=== PATIENT | female | born 1980 | race Asian ===

== ENCOUNTER 2019-09-09 00:06 | Emergency (ER) | payer SELFPAY ==
--- NOTE | 2019-09-09 00:36 | ED ---
Laceration/Wound HPI - HPI Summary HPI Summary: 39-year-old female presents with right middle finger skin avulsion. She states that she cut it at 12 today. She states that she is cutting her finger on a mandolin. She states that she put a pressure dressing on the area but it continued to bleed. States that ended up removing the dressing and it bleed again. Currently oozing. has full ROM. 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 - History of Current Complaint Stated Complaint: FINGER LAC PER PT Time Seen by Provider: 09/09/19 00:16 Pain Intensity: 5 - Allergy/Home Medications Allergies/Adverse Reactions: Allergies Allergy/AdvReac Type Severity Reaction Status Date / Time oyster extract Allergy Vomiting Verified 09/09/19 00:10 PMH/Surg Hx/FS Hx/Imm Hx Endocrine/Hematology History: Denies: Hx Anticoagulant Therapy Respiratory History: Denies: Hx Asthma Infectious Disease History: No Infectious Disease History: Denies: Traveled Outside the [place] in Last 30 Days - Family History Known Family History: Positive: Non-Contributory - Social History Alcohol Use: Occasionally Substance Use Type: Reports: None Review of Systems Negative: Fever Negative: Chest Pain Negative: Shortness Of Breath Positive: Other - skin avulsion right middle finger All Other Systems Reviewed And Are Negative: Yes Physical Exam Triage Information Reviewed: Yes Vital Signs On Initial Exam: Initial Vitals Temp Pulse Resp BP Pulse Ox 98.1 F 60 15 146/106 100 09/09/19 00:08 09/09/19 00:08 09/09/19 00:08 09/09/19 00:08 09/09/19 00:08 Vital Signs Reviewed: Yes Appearance: Positive: Well-Appearing Skin: Positive: Other - 1 1/2cm by 1/2cm skin avulsion of right middle finger Head/Face: Positive: Normal Head/Face Inspection Eyes: Positive: Normal, Conjunctiva Clear ENT: Positive: Pharynx normal Respiratory/Lung Sounds: Positive: Clear to Auscultation, Breath Sounds Present Cardiovascular: Positive: Normal, RRR Musculoskeletal: Positive: Strength/ROM Intact - right hand, Other - good pulses Neurological: Positive: Normal Psychiatric: Positive: Normal Procedures - Sedation Patient Received Moderate/Deep Sedation with Procedure: No - Laceration/Wound Repair 1 Location: Other - right middle finger Length, Depth and Shape: 1 1/2cm by 1/2cm skin avulsion Irrigated w/ Saline (ccs): 500 Sterile Dressing Applied?: Yes - surgicel, xerform, telfa and coband Diagnostics - Vital Signs Vital Signs Temp Pulse Resp BP Pulse Ox 09/09/19 00:08 98.1 F 60 15 146/106 100 - Laboratory Lab Statement: Any lab studies that have been ordered have been reviewed, and results considered in the medical decision making process. Laceration Repair Course/Dx - Course Course Of Treatment: 39-year-old female presents with right middle finger skin avulsion. She states that she cut it at 12 today. She states that she is cutting her finger on a mandolin. She states that she put a pressure dressing on the area but it continued to bleed. States that ended up removing the dressing and it bleed again. Currently oozing. has full ROM. 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 on exam has 1 1/2cm by 1/2cm skin avulsion of right middle finger. cleaned area and placed surgicel, xeroforma and coband. no rebleeding. told to change dressing and watch for any signs of infection. patient understand and agrees with plan. - Differential Dx Differental Diagnoses: Abrasion, Avulsion, Laceration - Clinical Impression Provider Diagnoses: Skin avulsion Discharge ED - Sign-Out/Discharge Documenting (check all that apply): Patient Departure - Discharge Plan Condition: Good Disposition: HOME Patient Education Materials: Skin Avulsion (ED) Referrals: No Primary Care Phys,NOPCP [Primary Care Provider] - Additional Instructions: Keep area in pressure dressing for 48 hours, after 48 hours check for sign of infection leaving absorbable hemostat on wound and rewrap with pressure dressing for another 24 hours Keep area covered Follow up with primary within 5 days Return to ED if develop any signs of infection such as fever, spreading redness , or pus formation or any new or worsening symptoms - Billing Disposition and Condition Condition: GOOD Disposition: Home
[2019-09-09 01:08] VITALS: BP 140/81
== END 2019-09-09 01:05 | disposition home or self-care (01) ==
LOC: ED 00:06
DX: S61.202A Unspecified open wound of right middle finger without damage to nail, initial encounter (principal); W45.8XXA Other foreign body or object entering through skin, initial encounter; Y92.9 Unspecified place or not applicable
CPT/HCPCS: 99282